=== PATIENT | male | born 1945 | race Two or more races ===

== ENCOUNTER 2022-07-06 21:13 | Inpatient (IN) | payer MEDICARE, OTHER ==
[~2022-07-06] VITALS: Ht 172.7 cm; Wt 48.0 kg
[2022-07-06] MEDS ORDERED: SITA1TAB6 PO (21:42)
[2022-07-06] MEDS ORDERED: INSLAN SQ (21:42)
[2022-07-06] MEDS ORDERED: MAGN-169 PO (21:42)
[2022-07-06] MEDS ORDERED: MEMA10TA11 PO (21:42)
[2022-07-06] MEDS ORDERED: PANT40GR PO (21:42)
[2022-07-06] MEDS ORDERED: CHOL200059 PO (21:42)
[2022-07-06] MEDS ORDERED: ROSU20TA73 PO (21:42)
[2022-07-06] MEDS ORDERED: MULT-1203 PO (21:42)
[2022-07-06] MEDS ORDERED: INSU100V SQ (21:42)
[2022-07-06] MEDS ORDERED: GLUC1KIT IM (21:42)
[2022-07-06] MEDS ORDERED: LOSA-382 PO (21:42)
[2022-07-06] MEDS ORDERED: PIPERACILLIN/TAZO 3.375 GM/D5W 50 ML IV ONE (21:45)
[2022-07-06] MEDS ORDERED: SODIUM CHLORIDE 0.9% 1,500 ML IV ONE (21:45)
[2022-07-06] MEDS ORDERED: VANCOMYCIN 1GM/WATER(PEG/NADA) 200 ML IV ONE (21:45)
[2022-07-06 21:46] LABS: COVID AG,FIA SOURCE NASOPHARYNGEAL
[2022-07-06] MEDS ORDERED: ACETAMINOPHEN 650 MG RECTAL SUPPOSITORY PR ONE ×2 (21:50→22:00)
[2022-07-06 21:53] LABS: BASOPHILS % (AUTO) 0.2 % (0.0-2.0); EOSINOPHILS % (AUTO) 0 % (1.0-6.0); HEMATOCRIT 40.6 % (41-53); HEMOGLOBIN 13.1 g/dL (13.5-17.5); LYMPHOCYTES # (AUTO) 0.8 K/uL (1.0-4.8); LYMPHOCYTES % (AUTO) 3.2 % (22.0-44.0); MEAN CORPUSCULAR HEMOGLOBIN 27.9 pg (26.0-34.0); MEAN CORPUSCULAR HGB CONC 32.4 G/dL (31.0-37.0); MEAN CORPUSCULAR VOLUME 86 fL (80-100); MONOCYTES # (AUTO) 1.8 K/uL (0.1-1.0); MONOCYTES % (AUTO) 7.4 % (2.0-9.0); PLATELET COUNT (AUTO) 228 K/uL (150-450); RED BLOOD CELL COUNT(AUTO) 4.71 MIL/uL (4.50-5.90); RED CELL DISTRIBUTION WIDTH 15.4 % (11.5-14.5)
[2022-07-06 21:54] LABS: APPEARANCE,URINE HAZY (CLEAR); BILIRUBIN,URINE NEGATIVE (NEGATIVE); GLUCOSE, URINE (UA) 150-200 mg/dL (NEGATIVE); LEUKOCYTE ESTERASE ,URINE NEGATIVE (NEGATIVE); NITRATE,URINE NEGATIVE (NEGATIVE); OCCULT BLOOD,URINE LARGE (NEGATIVE); PROTEIN,URINE 300-600,SEE CONFIRM mg/dL (NEGATIVE); SPECIFIC GRAVITIY, URINE 1.018 (1.003-1.030)
[2022-07-06 21:57] LABS: NEUTROPHILS % (AUTO) 89.2 % (40.0-70.0)
[2022-07-06 22:05] LABS: ALANINE AMINOTRANSFERASE 44 U/L (12-78); ALBUMIN 2.2 g/dL (3.4-5.0); ALKALINE PHOSPHATASE 338 U/L (46-116); ANION GAP 18 mmol/L (8-16); ASPARTATE AMINOTRANSFERASE 42 U/L (15-37); CALCIUM, TOTAL 8.9 mg/dL (8.8-10.5); CARBON DIOXIDE 18 mmol/L (22-29); CHLORIDE 107 mmol/L (98-107); CREATININE 2.33 mg/dL (0.60-1.30); GLOMERULAR FILTR. RATE CALC 27 mL/min (>60); POTASSIUM 3.9 mmol/L (3.5-5.1); SODIUM SERUM 143 mmol/L (136-145); TOTAL PROTEIN, SERUM 7.5 g/dL (6.4-8.2); UREA NITROGEN, BLOOD 38 mg/dL (7-18)
[2022-07-06 22:06] LABS: GLUCOSE,RANDOM 424 mg/dL (70-110)
[2022-07-06 22:08] LABS: SULFOSALICYLIC ACID,URINE 4+ (Negative)
[2022-07-06 22:10] LABS: SQUAMOUS EPITHELIAL CELL,UR Few /LPF (None Seen)
[2022-07-06 22:13] LABS: COARSE GRANULAR CASTS,URINE 0-2 /LPF (None Seen)
[2022-07-06 22:16] LABS: RBC,URINE 0-2 /HPF (0-2)
[2022-07-06 22:17] LABS: BACTERIA,URINE None Seen /HPF (None Seen)
[2022-07-06 22:19] LABS: INFLUENZA TYPE A NEGATIVE FOR TYPE A (NEGATIVE); INFLUENZA TYPE B NEGATIVE FOR TYPE B (NEGATIVE)
[2022-07-06 22:34] LABS: LACTIC ACID 3.9 mmol/L (0.4-2.0)
[2022-07-06] MEDS ORDERED: ONDANSETRON HCL 4 MG/2 ML VIAL IVP PRN (23:15)
[2022-07-06] MEDS ORDERED: INSULIN GLARGINE,HUM.REC.ANLOG 100 UNITS/ML SQ SCH (23:30)
[2022-07-06] MEDS ORDERED: DEXTROSE 50%-WATER 25 GM/50 ML SYRINGE IVP PRN (23:30)
[2022-07-06] MEDS: RINGERS SOLUTION,LACTATED 1,000 ML IV SCH (23:45)
[2022-07-07] MEDS: HEPARIN SODIUM,PORCINE 5,000 UNITS/ML VIAL SQ SCH ×4 (00:27→23:21)
[2022-07-07 02:57] VITALS: BP 155/70
[2022-07-07 03:15] LABS: CREATININE,URINE RANDOM 130.3 mg/dL (30.0-125.0)
[2022-07-07 03:41] LABS: GLUCOMETER DEV NAME(LOC) 5S.1B; GLUCOSE,POINT OF CARE 349 MG/DL (70-110)
[2022-07-07] MEDS: PIPERACILLIN SODIUM/TAZOBACTAM 2.25 GM in DEXTROSE 5%-WATER 50 ML IV SCH ×4 (04:08→23:21)
[2022-07-07 05:32] VITALS: BP 150/76
[2022-07-07] MEDS ORDERED: INSULIN GLARGINE,HUM.REC.ANLOG 100 UNITS/ML SQ SCH (06:00)
[2022-07-07 06:07] LABS: GLUCOMETER DEV NAME(LOC) 5S.1B; GLUCOSE,POINT OF CARE 357 MG/DL (70-110)
[2022-07-07] MEDS: INSULIN LISPRO 100 UNITS/ML SQ PRN ×3 (06:32→17:38)
[2022-07-07 07:30] VITALS: BP 143/74
[2022-07-07] MEDS: RINGERS SOLUTION,LACTATED 1,000 ML IV SCH (08:31)
[2022-07-07 08:32] LABS: BASOPHILS % (AUTO) 0.1 % (0.0-2.0); EOSINOPHILS % (AUTO) 0 % (1.0-6.0); HEMATOCRIT 37.6 % (41-53); HEMOGLOBIN 11.9 g/dL (13.5-17.5); LYMPHOCYTES # (AUTO) 1.5 K/uL (1.0-4.8); LYMPHOCYTES % (AUTO) 5.6 % (22.0-44.0); MEAN CORPUSCULAR HEMOGLOBIN 27.5 pg (26.0-34.0); MEAN CORPUSCULAR HGB CONC 31.7 G/dL (31.0-37.0); MEAN CORPUSCULAR VOLUME 87 fL (80-100); MONOCYTES % (AUTO) 3.8 % (2.0-9.0); NEUTROPHILS # (AUTO) 24.9 K/uL (1.8-7.7); PLATELET COUNT (AUTO) 179 K/uL (150-450); RED BLOOD CELL COUNT(AUTO) 4.35 MIL/uL (4.50-5.90); RED CELL DISTRIBUTION WIDTH 15.9 % (11.5-14.5)
[2022-07-07 08:42] LABS: CALCIUM, TOTAL 8.5 mg/dL (8.8-10.5); CREATININE 2.03 mg/dL (0.60-1.30); MAGNESIUM 2.3 mg/dL (1.80-2.40); POTASSIUM 3.3 mmol/L (3.5-5.1)
[2022-07-07 08:44] LABS: NEUTROPHILS % (AUTO) 90.5 % (40.0-70.0)
[2022-07-07 11:00] VITALS: BP 135/63
[2022-07-07] MEDS ORDERED: DEXTROSE 5%-WATER 1,000 ML IV ONE (11:45)
[2022-07-07 13:10] LABS: GLUCOMETER DEV NAME(LOC) 5S.1B; GLUCOSE,POINT OF CARE 302 MG/DL (70-110)
[2022-07-07 15:00] VITALS: BP 159/80
[2022-07-07 16:03] LABS: C-REACTIVE PROTEIN QUANT 18.3 mg/dL (0.00-0.30)
[2022-07-07 19:11] LABS: GLUCOMETER DEV NAME(LOC) 5S.1B; GLUCOSE,POINT OF CARE 307 MG/DL (70-110)
[2022-07-07 20:25] VITALS: BP 157/79
[2022-07-07 20:56] LABS: GLUCOMETER DEV NAME(LOC) 5S.2B; GLUCOSE,POINT OF CARE 257 MG/DL (70-110)
[2022-07-07] MEDS ORDERED: MELATONIN 3 MG TABLET PO ONE (21:00)
[2022-07-07] MEDS: INSULIN GLARGINE,HUM.REC.ANLOG 100 UNITS/ML SQ SCH (21:04)
[2022-07-07] MEDS: DOXYCYCLINE HYCLATE 100 MG TABLET PO SCH (21:19)
[2022-07-07] MEDS: MEMANTINE HCL 10 MG TABLET PO SCH (21:19)
[2022-07-07] MEDS: ROSUVASTATIN CALCIUM 20 MG TABLET PO SCH (21:19)
[2022-07-08 01:05] VITALS: BP 146/87
[2022-07-08] MEDS: PIPERACILLIN SODIUM/TAZOBACTAM 2.25 GM in DEXTROSE 5%-WATER 50 ML IV SCH ×4 (04:56→22:00)
[2022-07-08 05:21] VITALS: BP 146/71
[2022-07-08] MEDS: INSULIN LISPRO 100 UNITS/ML SQ PRN (06:45)
[2022-07-08 06:48] LABS: BASOPHILS % (AUTO) 0.2 % (0.0-2.0); EOSINOPHILS % (AUTO) 0.5 % (1.0-6.0); HEMATOCRIT 37.9 % (41-53); HEMOGLOBIN 12.1 g/dL (13.5-17.5); LYMPHOCYTES # (AUTO) 1.1 K/uL (1.0-4.8); LYMPHOCYTES % (AUTO) 5.3 % (22.0-44.0); MEAN CORPUSCULAR HEMOGLOBIN 27.8 pg (26.0-34.0); MEAN CORPUSCULAR HGB CONC 31.9 G/dL (31.0-37.0); MEAN CORPUSCULAR VOLUME 87 fL (80-100); MONOCYTES # (AUTO) 0.7 K/uL (0.1-1.0); MONOCYTES % (AUTO) 3.2 % (2.0-9.0); NEUTROPHILS # (AUTO) 19.7 K/uL (1.8-7.7); RED BLOOD CELL COUNT(AUTO) 4.35 MIL/uL (4.50-5.90); RED CELL DISTRIBUTION WIDTH 15.7 % (11.5-14.5)
[2022-07-08 06:49] LABS: NEUTROPHILS % (AUTO) 90.8 % (40.0-70.0)
[2022-07-08 06:52] LABS: GLUCOMETER DEV NAME(LOC) 5S.2B; GLUCOSE,POINT OF CARE 239 MG/DL (70-110)
[2022-07-08 07:09] LABS: ALBUMIN 1.9 g/dL (3.4-5.0); BILIRUBIN,TOTAL 0.5 mg/dL (0.1-1.0); C-REACTIVE PROTEIN QUANT 13.55 mg/dL (0.00-0.30); CALCIUM, TOTAL 8.3 mg/dL (8.8-10.5); CREATININE 1.35 mg/dL (0.60-1.30); TOTAL PROTEIN, SERUM 6.4 g/dL (6.4-8.2)
[2022-07-08 07:45] VITALS: BP 140/66
[2022-07-08] MEDS: HEPARIN SODIUM,PORCINE 5,000 UNITS/ML VIAL SQ SCH ×3 (08:00→23:44)
[2022-07-08 09:22] LABS: PLATELET COUNT (AUTO) 158 K/uL (150-450)
[2022-07-08] MEDS: MULTIVITAMINS, THERAPEUTIC TABLET PO SCH (09:32)
[2022-07-08] MEDS: DOXYCYCLINE HYCLATE 100 MG TABLET PO SCH ×2 (09:32→20:26)
[2022-07-08] MEDS: MEMANTINE HCL 10 MG TABLET PO SCH ×2 (09:32→20:26)
[2022-07-08] MEDS ORDERED: SODIUM CHLORIDE 0.9% 500 ML IV ONE (09:38)
[2022-07-08] MEDS ORDERED: POTASSIUM CHLORIDE 20 MEQ ER TABLET PO PRN (10:45)
[2022-07-08 11:35] VITALS: BP 139/80
[2022-07-08] MEDS: POTASSIUM CHL 10 MEQ/WATER 50 ML IV PRN (12:24)
[2022-07-08 15:45] VITALS: BP 155/75
[2022-07-08] MEDS ORDERED: MELATONIN 3 MG TABLET PO PRN (20:00)
[2022-07-08] MEDS: INSULIN GLARGINE,HUM.REC.ANLOG 100 UNITS/ML SQ SCH (20:26)
[2022-07-08] MEDS: ROSUVASTATIN CALCIUM 20 MG TABLET PO SCH (20:26)
[2022-07-08 20:41] LABS: GLUCOMETER DEV NAME(LOC) 5S.2B; GLUCOSE,POINT OF CARE 165 MG/DL (70-110)
[2022-07-08 20:41] LABS: GLUCOMETER DEV NAME(LOC) 5S.2B; GLUCOSE,POINT OF CARE 226 MG/DL (70-110)
[2022-07-08 21:10] VITALS: BP 147/79
[2022-07-09 00:40] VITALS: BP 144/82
[2022-07-09] MEDS: POTASSIUM CHL 10 MEQ/WATER 50 ML IV PRN ×4 (04:05→12:34)
[2022-07-09] MEDS: PIPERACILLIN SODIUM/TAZOBACTAM 2.25 GM in DEXTROSE 5%-WATER 50 ML IV SCH ×4 (04:06→21:53)
[2022-07-09 05:42] VITALS: BP 131/64
[2022-07-09 06:24] LABS: BASOPHILS % (AUTO) 0.1 % (0.0-2.0); EOSINOPHILS % (AUTO) 0.4 % (1.0-6.0); HEMATOCRIT 35.7 % (41-53); HEMOGLOBIN 11.8 g/dL (13.5-17.5); LYMPHOCYTES # (AUTO) 1.6 K/uL (1.0-4.8); MEAN CORPUSCULAR HEMOGLOBIN 27.9 pg (26.0-34.0); MEAN CORPUSCULAR HGB CONC 33.1 G/dL (31.0-37.0); MEAN CORPUSCULAR VOLUME 84 fL (80-100); MONOCYTES # (AUTO) 0.7 K/uL (0.1-1.0); MONOCYTES % (AUTO) 3.8 % (2.0-9.0); NEUTROPHILS # (AUTO) 15.4 K/uL (1.8-7.7); PLATELET COUNT (AUTO) 170 K/uL (150-450); RED BLOOD CELL COUNT(AUTO) 4.24 MIL/uL (4.50-5.90); RED CELL DISTRIBUTION WIDTH 15.2 % (11.5-14.5)
[2022-07-09 06:27] LABS: NEUTROPHILS % (AUTO) 86.7 % (40.0-70.0)
[2022-07-09 06:37] LABS: C-REACTIVE PROTEIN QUANT 10.96 mg/dL (0.00-0.30); CALCIUM, TOTAL 8.7 mg/dL (8.8-10.5); CARBON DIOXIDE 24 mmol/L (22-29); CHLORIDE 105 mmol/L (98-107); CREATININE 1.08 mg/dL (0.60-1.30); GLUCOSE,RANDOM 159 mg/dL (70-110); POTASSIUM 3.3 mmol/L (3.5-5.1); UREA NITROGEN, BLOOD 18 mg/dL (7-18)
[2022-07-09 06:58] LABS: GLOMERULAR FILTR. RATE CALC > 60 mL/min (>60)
[2022-07-09] MEDS: INSULIN LISPRO 100 UNITS/ML SQ PRN ×3 (07:02→21:49)
[2022-07-09 07:16] LABS: GLUCOMETER DEV NAME(LOC) 5S.1B; GLUCOSE,POINT OF CARE 162 MG/DL (70-110)
[2022-07-09 07:18] LABS: ANION GAP 15 mmol/L (8-16); SODIUM SERUM 144 mmol/L (136-145)
[2022-07-09 07:26] VITALS: BP 104/61
[2022-07-09] MEDS: HEPARIN SODIUM,PORCINE 5,000 UNITS/ML VIAL SQ SCH ×2 (08:16→16:13)
[2022-07-09] MEDS: MULTIVITAMINS, THERAPEUTIC TABLET PO SCH (08:16)
[2022-07-09] MEDS: MEMANTINE HCL 10 MG TABLET PO SCH ×3 (08:16→21:48)
[2022-07-09] MEDS: DOXYCYCLINE HYCLATE 100 MG TABLET PO SCH ×3 (08:16→21:49)
[2022-07-09 11:24] VITALS: BP 129/62
[2022-07-09 15:09] VITALS: BP 19/53
[2022-07-09 20:14] VITALS: BP 155/84
[2022-07-09 20:26] LABS: GLUCOMETER DEV NAME(LOC) 5N.1C; GLUCOSE,POINT OF CARE 157 MG/DL (70-110)
[2022-07-09 20:26] LABS: GLUCOMETER DEV NAME(LOC) 5S.1B; GLUCOSE,POINT OF CARE 315 MG/DL (70-110)
[2022-07-09] MEDS: INSULIN GLARGINE,HUM.REC.ANLOG 100 UNITS/ML SQ SCH (21:00)
[2022-07-09] MEDS: ROSUVASTATIN CALCIUM 20 MG TABLET PO SCH ×2 (21:00→21:48)
[2022-07-09 23:46] LABS: GLUCOMETER DEV NAME(LOC) 5N.1C; GLUCOSE,POINT OF CARE 217 MG/DL (70-110)
[2022-07-10] MEDS: HEPARIN SODIUM,PORCINE 5,000 UNITS/ML VIAL SQ SCH ×5 (00:11→23:25)
[2022-07-10 04:00] VITALS: BP 162/79
[2022-07-10] MEDS: PIPERACILLIN SODIUM/TAZOBACTAM 2.25 GM in DEXTROSE 5%-WATER 50 ML IV SCH ×4 (04:37→23:16)
[2022-07-10] MEDS: INSULIN LISPRO 100 UNITS/ML SQ PRN ×4 (06:37→20:40)
[2022-07-10 07:07] VITALS: BP 134/71
[2022-07-10 07:24] LABS: BASOPHILS % (AUTO) 0.1 % (0.0-2.0); EOSINOPHILS % (AUTO) 0.4 % (1.0-6.0); HEMOGLOBIN 11.6 g/dL (13.5-17.5); LYMPHOCYTES # (AUTO) 1.3 K/uL (1.0-4.8); LYMPHOCYTES % (AUTO) 7.9 % (22.0-44.0); MEAN CORPUSCULAR HEMOGLOBIN 27.8 pg (26.0-34.0); MEAN CORPUSCULAR VOLUME 84 fL (80-100); MONOCYTES # (AUTO) 0.6 K/uL (0.1-1.0); NEUTROPHILS # (AUTO) 14.2 K/uL (1.8-7.7); PLATELET COUNT (AUTO) 171 K/uL (150-450); RED BLOOD CELL COUNT(AUTO) 4.16 MIL/uL (4.50-5.90); RED CELL DISTRIBUTION WIDTH 15.1 % (11.5-14.5)
[2022-07-10 07:32] LABS: NEUTROPHILS % (AUTO) 87.6 % (40.0-70.0)
[2022-07-10 07:34] LABS: C-REACTIVE PROTEIN QUANT 8.49 mg/dL (0.00-0.30); CALCIUM, TOTAL 8.6 mg/dL (8.8-10.5); CARBON DIOXIDE 25 mmol/L (22-29); CHLORIDE 104 mmol/L (98-107); CREATININE 1.03 mg/dL (0.60-1.30); GLUCOSE,RANDOM 231 mg/dL (70-110); POTASSIUM 3.4 mmol/L (3.5-5.1); UREA NITROGEN, BLOOD 16 mg/dL (7-18)
[2022-07-10 07:41] LABS: ANION GAP 10 mmol/L (8-16); SODIUM SERUM 139 mmol/L (136-145)
[2022-07-10 07:42] LABS: GLOMERULAR FILTR. RATE CALC > 60 mL/min (>60)
[2022-07-10 09:06] LABS: GLUCOMETER DEV NAME(LOC) 5N.1C; GLUCOSE,POINT OF CARE 229 MG/DL (70-110)
[2022-07-10] MEDS: MULTIVITAMINS, THERAPEUTIC TABLET PO SCH (09:17)
[2022-07-10] MEDS: DOXYCYCLINE HYCLATE 100 MG TABLET PO SCH ×2 (09:17→20:36)
[2022-07-10] MEDS: MEMANTINE HCL 10 MG TABLET PO SCH ×2 (09:17→20:37)
[2022-07-10 11:06] VITALS: BP 100/81
[2022-07-10 12:46] LABS: GLUCOMETER DEV NAME(LOC) 5S.1B; GLUCOSE,POINT OF CARE 302 MG/DL (70-110)
[2022-07-10 15:04] VITALS: BP 154/87
[2022-07-10 18:16] LABS: GLUCOMETER DEV NAME(LOC) 5N.1C; GLUCOSE,POINT OF CARE 294 MG/DL (70-110)
[2022-07-10 19:30] VITALS: BP 137/85
[2022-07-10] MEDS: ROSUVASTATIN CALCIUM 20 MG TABLET PO SCH (20:36)
[2022-07-10] MEDS: INSULIN GLARGINE,HUM.REC.ANLOG 100 UNITS/ML SQ SCH (20:39)
[2022-07-10 22:57] LABS: GLUCOMETER DEV NAME(LOC) 5N.1C; GLUCOSE,POINT OF CARE 291 MG/DL (70-110)
[2022-07-10] MEDS ORDERED: SODIUM CHLORIDE 0.9% 250 ML IV ONE (23:18)
[2022-07-11 00:45] VITALS: BP 163/98
[2022-07-11] MEDS: LABETALOL HCL 100 MG TABLET PO SCH ×3 (00:45→21:33)
[2022-07-11] MEDS: HydrALAZINE HCL 20 MG/ML VIAL IVP PRN (01:25)
[2022-07-11 04:11] VITALS: BP 145/79
[2022-07-11] MEDS: PIPERACILLIN SODIUM/TAZOBACTAM 2.25 GM in DEXTROSE 5%-WATER 50 ML IV SCH ×4 (05:01→21:43)
[2022-07-11 06:19] LABS: BASOPHILS % (AUTO) 0.1 % (0.0-2.0); EOSINOPHILS % (AUTO) 0.6 % (1.0-6.0); HEMATOCRIT 38.1 % (41-53); HEMOGLOBIN 12.4 g/dL (13.5-17.5); LYMPHOCYTES # (AUTO) 1.5 K/uL (1.0-4.8); LYMPHOCYTES % (AUTO) 7.7 % (22.0-44.0); MEAN CORPUSCULAR HGB CONC 32.6 G/dL (31.0-37.0); MEAN CORPUSCULAR VOLUME 86 fL (80-100); MONOCYTES # (AUTO) 1.1 K/uL (0.1-1.0); MONOCYTES % (AUTO) 6.1 % (2.0-9.0); NEUTROPHILS # (AUTO) 16.3 K/uL (1.8-7.7); PLATELET COUNT (AUTO) 177 K/uL (150-450); RED BLOOD CELL COUNT(AUTO) 4.43 MIL/uL (4.50-5.90); RED CELL DISTRIBUTION WIDTH 15.4 % (11.5-14.5)
[2022-07-11 06:46] LABS: GLUCOMETER DEV NAME(LOC) 5N.1C; GLUCOSE,POINT OF CARE 210 MG/DL (70-110)
[2022-07-11 06:59] LABS: NEUTROPHILS % (AUTO) 85.5 % (40.0-70.0)
[2022-07-11] MEDS: INSULIN LISPRO 100 UNITS/ML SQ PRN ×5 (07:05→22:36)
[2022-07-11 07:48] VITALS: BP 115/58
[2022-07-11] MEDS: HEPARIN SODIUM,PORCINE 5,000 UNITS/ML VIAL SQ SCH ×3 (08:00→23:27)
[2022-07-11] MEDS: MEMANTINE HCL 10 MG TABLET PO SCH ×2 (09:00→21:33)
[2022-07-11] MEDS: MULTIVITAMINS, THERAPEUTIC TABLET PO SCH (09:00)
[2022-07-11] MEDS: DOXYCYCLINE HYCLATE 100 MG TABLET PO SCH ×2 (09:00→21:33)
[2022-07-11 11:18] VITALS: BP 107/60
[2022-07-11 15:06] LABS: LEGIONELLA PNEUMO AG URINE Negative (Negative)
[2022-07-11 16:06] LABS: S PNEUMO SOURCE Urine; STREP PNEUMONIAE AG URINE Positive (Negative)
[2022-07-11 16:21] VITALS: BP 129/70
[2022-07-11 19:56] VITALS: BP 110/75
[2022-07-11] MEDS: INSULIN GLARGINE,HUM.REC.ANLOG 100 UNITS/ML SQ SCH ×2 (21:00→21:34)
[2022-07-11] MEDS: ROSUVASTATIN CALCIUM 20 MG TABLET PO SCH (21:33)
[2022-07-12 00:06] LABS: ALKALINE PHOSPHATASE - OTHER 3 % (0-18)
[2022-07-12 00:12] VITALS: BP 134/72
[2022-07-12] MEDS ORDERED: SODIUM CHLORIDE 3% 15 ML NEB SOLUTION NEB ONE (00:24)
[2022-07-12] MEDS ORDERED: 0.9% SODIUM CHLORIDE 5 ML NEB SOLUTION NEB ONE (00:24)
[2022-07-12] MEDS: PIPERACILLIN SODIUM/TAZOBACTAM 2.25 GM in DEXTROSE 5%-WATER 50 ML IV SCH ×4 (04:01→22:28)
[2022-07-12] MEDS: INSULIN LISPRO 100 UNITS/ML SQ PRN ×4 (06:49→22:29)
[2022-07-12 06:57] LABS: GLUCOMETER DEV NAME(LOC) 5S.1B; GLUCOSE,POINT OF CARE 277 MG/DL (70-110)
[2022-07-12 07:02] LABS: GLUCOMETER DEV NAME(LOC) 5N.1C; GLUCOSE,POINT OF CARE 369 MG/DL (70-110)
[2022-07-12 07:02] LABS: GLUCOMETER DEV NAME(LOC) 5N.1C; GLUCOSE,POINT OF CARE 218 MG/DL (70-110)
[2022-07-12 07:02] LABS: GLUCOMETER DEV NAME(LOC) 5N.1C; GLUCOSE,POINT OF CARE 188 MG/DL (70-110)
[2022-07-12] MEDS: HEPARIN SODIUM,PORCINE 5,000 UNITS/ML VIAL SQ SCH ×4 (08:00→22:28)
[2022-07-12] MEDS: MEMANTINE HCL 10 MG TABLET PO SCH ×3 (09:00→22:28)
[2022-07-12] MEDS: DOXYCYCLINE HYCLATE 100 MG TABLET PO SCH ×2 (09:00→09:18)
[2022-07-12] MEDS: LABETALOL HCL 100 MG TABLET PO SCH ×3 (09:00→22:28)
[2022-07-12 09:16] VITALS: BP 128/70
[2022-07-12] MEDS: MULTIVITAMINS, THERAPEUTIC TABLET PO SCH (09:18)
[2022-07-12] MEDS ORDERED: SODIUM CHLORIDE 0.9% 250 ML IV ONE (09:23)
[2022-07-12 10:21] LABS: BASOPHILS % (AUTO) 0.1 % (0.0-2.0); EOSINOPHILS % (AUTO) 1.1 % (1.0-6.0); HEMATOCRIT 36.4 % (41-53); HEMOGLOBIN 11.7 g/dL (13.5-17.5); LYMPHOCYTES # (AUTO) 1.6 K/uL (1.0-4.8); LYMPHOCYTES % (AUTO) 7.8 % (22.0-44.0); MEAN CORPUSCULAR HEMOGLOBIN 28.1 pg (26.0-34.0); MEAN CORPUSCULAR HGB CONC 32.2 G/dL (31.0-37.0); MEAN CORPUSCULAR VOLUME 88 fL (80-100); MONOCYTES # (AUTO) 1.3 K/uL (0.1-1.0); MONOCYTES % (AUTO) 6.3 % (2.0-9.0); NEUTROPHILS # (AUTO) 16.8 K/uL (1.8-7.7); NEUTROPHILS % (AUTO) 84.7 % (40.0-70.0); PLATELET COUNT (AUTO) 200 K/uL (150-450); RED BLOOD CELL COUNT(AUTO) 4.16 MIL/uL (4.50-5.90); RED CELL DISTRIBUTION WIDTH 15.4 % (11.5-14.5)
[2022-07-12 10:40] LABS: CALCIUM, TOTAL 9.2 mg/dL (8.8-10.5); CREATININE 1.22 mg/dL (0.60-1.30)
[2022-07-12 11:46] LABS: GLUCOMETER DEV NAME(LOC) 5S.1B; GLUCOSE,POINT OF CARE 354 MG/DL (70-110)
[2022-07-12 11:49] VITALS: BP 126/72
[2022-07-12 16:00] VITALS: BP 126/74
[2022-07-12 19:41] VITALS: BP 127/70
[2022-07-12 19:41] LABS: GLUCOMETER DEV NAME(LOC) 5N.3; GLUCOSE,POINT OF CARE 341 MG/DL (70-110)
[2022-07-12 22:22] LABS: GLUCOMETER DEV NAME(LOC) 5N.1C; GLUCOSE,POINT OF CARE 260 MG/DL (70-110)
[2022-07-12] MEDS: ROSUVASTATIN CALCIUM 20 MG TABLET PO SCH (22:28)
[2022-07-12] MEDS: INSULIN GLARGINE,HUM.REC.ANLOG 100 UNITS/ML SQ SCH (22:29)
[2022-07-13 04:00] VITALS: BP 142/76
[2022-07-13] MEDS: PIPERACILLIN SODIUM/TAZOBACTAM 2.25 GM in DEXTROSE 5%-WATER 50 ML IV SCH ×2 (04:15→09:38)
[2022-07-13] MEDS: INSULIN LISPRO 100 UNITS/ML SQ PRN (06:36)
[2022-07-13 06:41] LABS: GLUCOMETER DEV NAME(LOC) 5S.1B; GLUCOSE,POINT OF CARE 188 MG/DL (70-110)
[2022-07-13 07:06] LABS: HIV 1-2 SCREEN 4TH GEN W/RFLX Non Reactive (Non Reactive)
[2022-07-13 07:13] LABS: BASOPHILS % (AUTO) 0.1 % (0.0-2.0); EOSINOPHILS % (AUTO) 1.3 % (1.0-6.0); HEMATOCRIT 35.3 % (41-53); HEMOGLOBIN 11.5 g/dL (13.5-17.5); LYMPHOCYTES # (AUTO) 1.8 K/uL (1.0-4.8); LYMPHOCYTES % (AUTO) 8.6 % (22.0-44.0); MEAN CORPUSCULAR HEMOGLOBIN 28.1 pg (26.0-34.0); MEAN CORPUSCULAR HGB CONC 32.6 G/dL (31.0-37.0); MEAN CORPUSCULAR VOLUME 86 fL (80-100); MONOCYTES # (AUTO) 1.3 K/uL (0.1-1.0); MONOCYTES % (AUTO) 6.3 % (2.0-9.0); NEUTROPHILS # (AUTO) 17.1 K/uL (1.8-7.7); NEUTROPHILS % (AUTO) 83.7 % (40.0-70.0); PLATELET COUNT (AUTO) 223 K/uL (150-450); RED CELL DISTRIBUTION WIDTH 15.1 % (11.5-14.5)
[2022-07-13 07:23] LABS: ANION GAP 8 mmol/L (8-16); C-REACTIVE PROTEIN QUANT 8.83 mg/dL (0.00-0.30); CALCIUM, TOTAL 8.8 mg/dL (8.8-10.5); CARBON DIOXIDE 25 mmol/L (22-29); CHLORIDE 102 mmol/L (98-107); CREATININE 0.99 mg/dL (0.60-1.30); GLUCOSE,RANDOM 213 mg/dL (70-110); POTASSIUM 3.8 mmol/L (3.5-5.1); SODIUM SERUM 135 mmol/L (136-145); UREA NITROGEN, BLOOD 16 mg/dL (7-18)
[2022-07-13 07:28] LABS: GLOMERULAR FILTR. RATE CALC > 60 mL/min (>60)
[2022-07-13 07:44] LABS: FREE T4 (FREE THYROXINE) 1.36 ng/dL (0.76-1.46)
[2022-07-13] MEDS: HEPARIN SODIUM,PORCINE 5,000 UNITS/ML VIAL SQ SCH ×2 (08:00→16:00)
[2022-07-13] MEDS: LABETALOL HCL 100 MG TABLET PO SCH ×2 (09:38→21:12)
[2022-07-13] MEDS: MULTIVITAMINS, THERAPEUTIC TABLET PO SCH (09:38)
[2022-07-13] MEDS: MEMANTINE HCL 10 MG TABLET PO SCH ×2 (09:38→21:12)
[2022-07-13] MEDS ORDERED: PIPERACILLIN SODIUM/TAZOBACTAM 2.25 GM in DEXTROSE 5%-WATER 50 ML IV SCH (16:00)
[2022-07-13] MEDS: PIPERACILLIN/TAZO 3.375 GM/D5W 50 ML IV SCH ×2 (17:33→21:12)
[2022-07-13 19:30] VITALS: BP 149/78
[2022-07-13] MEDS: INSULIN GLARGINE,HUM.REC.ANLOG 100 UNITS/ML SQ SCH (21:11)
[2022-07-13] MEDS: ROSUVASTATIN CALCIUM 20 MG TABLET PO SCH (21:12)
[2022-07-13 23:27] LABS: GLUCOMETER DEV NAME(LOC) 5S.1B; GLUCOSE,POINT OF CARE 226 MG/DL (70-110)
[2022-07-13 23:55] VITALS: BP 139/77
[2022-07-14 04:00] VITALS: BP 145/85
[2022-07-14] MEDS: PIPERACILLIN/TAZO 3.375 GM/D5W 50 ML IV SCH ×4 (04:12→21:05)
[2022-07-14] MEDS: HEPARIN SODIUM,PORCINE 5,000 UNITS/ML VIAL SQ SCH ×3 (08:49→16:00)
[2022-07-14] MEDS: LABETALOL HCL 100 MG TABLET PO SCH ×2 (08:50→21:00)
[2022-07-14] MEDS: MULTIVITAMINS, THERAPEUTIC TABLET PO SCH (08:50)
[2022-07-14] MEDS: MEMANTINE HCL 10 MG TABLET PO SCH ×2 (08:50→21:00)
[2022-07-14] MEDS ORDERED: SODIUM CHLORIDE 0.9% 250 ML IV ONE (09:01)
[2022-07-14 12:12] VITALS: BP 151/60
[2022-07-14 13:47] LABS: GLUCOMETER DEV NAME(LOC) 5S.1B; GLUCOSE,POINT OF CARE 187 MG/DL (70-110)
[2022-07-14 17:24] VITALS: BP 130/69
[2022-07-14 19:51] VITALS: BP 129/70
[2022-07-14] MEDS: INSULIN GLARGINE,HUM.REC.ANLOG 100 UNITS/ML SQ SCH (21:00)
[2022-07-14] MEDS: ROSUVASTATIN CALCIUM 20 MG TABLET PO SCH (21:00)
[2022-07-15] VITALS: BP 131/77
[2022-07-15] MEDS: PIPERACILLIN/TAZO 3.375 GM/D5W 50 ML IV SCH ×4 (04:21→23:07)
[2022-07-15 04:30] VITALS: BP 146/90
[2022-07-15 08:30] VITALS: BP 162/90
[2022-07-15] MEDS: MEMANTINE HCL 10 MG TABLET PO SCH ×2 (09:09→21:00)
[2022-07-15] MEDS: HEPARIN SODIUM,PORCINE 5,000 UNITS/ML VIAL SQ SCH ×4 (09:10→23:17)
[2022-07-15] MEDS: LABETALOL HCL 100 MG TABLET PO SCH ×2 (09:10→21:00)
[2022-07-15] MEDS: MULTIVITAMINS, THERAPEUTIC TABLET PO SCH (09:10)
[2022-07-15 09:22] LABS: BASOPHILS % (AUTO) 0.2 % (0.0-2.0); EOSINOPHILS % (AUTO) 0.2 % (1.0-6.0); HEMATOCRIT 35.7 % (41-53); HEMOGLOBIN 11.5 g/dL (13.5-17.5); LYMPHOCYTES # (AUTO) 1.7 K/uL (1.0-4.8); LYMPHOCYTES % (AUTO) 5.5 % (22.0-44.0); MEAN CORPUSCULAR HEMOGLOBIN 27.8 pg (26.0-34.0); MEAN CORPUSCULAR HGB CONC 32.2 G/dL (31.0-37.0); MEAN CORPUSCULAR VOLUME 86 fL (80-100); MONOCYTES # (AUTO) 1.4 K/uL (0.1-1.0); MONOCYTES % (AUTO) 4.4 % (2.0-9.0); NEUTROPHILS # (AUTO) 28.3 K/uL (1.8-7.7); PLATELET COUNT (AUTO) 295 K/uL (150-450); RED BLOOD CELL COUNT(AUTO) 4.14 MIL/uL (4.50-5.90); RED CELL DISTRIBUTION WIDTH 15.5 % (11.5-14.5)
[2022-07-15 09:36] LABS: ALANINE AMINOTRANSFERASE 72 U/L (12-78); ALKALINE PHOSPHATASE 633 U/L (46-116); ANION GAP 6 mmol/L (8-16); ASPARTATE AMINOTRANSFERASE 48 U/L (15-37); BILIRUBIN,TOTAL 0.7 mg/dL (0.1-1.0); CARBON DIOXIDE 28 mmol/L (22-29); CHLORIDE 100 mmol/L (98-107); GLOMERULAR FILTR. RATE CALC > 60 mL/min (>60); GLUCOSE,RANDOM 257 mg/dL (70-110); POTASSIUM 4.5 mmol/L (3.5-5.1); SODIUM SERUM 134 mmol/L (136-145); TOTAL PROTEIN, SERUM 7.5 g/dL (6.4-8.2); UREA NITROGEN, BLOOD 17 mg/dL (7-18)
[2022-07-15 09:43] LABS: C-REACTIVE PROTEIN QUANT 10.67 mg/dL (0.00-0.30)
[2022-07-15 09:46] LABS: NEUTROPHILS % (AUTO) 89.7 % (40.0-70.0)
[2022-07-15 11:46] VITALS: BP 107/73
[2022-07-15] MEDS: INSULIN LISPRO 100 UNITS/ML SQ PRN (17:38)
[2022-07-15 18:06] LABS: GLUCOMETER DEV NAME(LOC) 5S.1B; GLUCOSE,POINT OF CARE 275 MG/DL (70-110)
[2022-07-15 20:20] VITALS: BP 141/78
[2022-07-15] MEDS ORDERED: IOHEXOL 350 MG/ML 100 ML VIAL ONE (20:28)
[2022-07-15] MEDS ORDERED: SODIUM CHLORIDE 0.9% 100 ML ONE (20:28)
[2022-07-15] MEDS: ROSUVASTATIN CALCIUM 20 MG TABLET PO SCH (21:00)
[2022-07-15] MEDS: INSULIN GLARGINE,HUM.REC.ANLOG 100 UNITS/ML SQ SCH (21:00)
[2022-07-15] MEDS ORDERED: SODIUM CHLORIDE 0.9% 250 ML IV ONE (23:08)
[2022-07-16 00:46] VITALS: BP 152/82
[2022-07-16 04:35] VITALS: BP 157/80
[2022-07-16] MEDS: PIPERACILLIN/TAZO 3.375 GM/D5W 50 ML IV SCH ×4 (04:40→21:02)
[2022-07-16 08:00] VITALS: BP 120/60
[2022-07-16] MEDS: MULTIVITAMINS, THERAPEUTIC TABLET PO SCH (08:17)
[2022-07-16] MEDS: HEPARIN SODIUM,PORCINE 5,000 UNITS/ML VIAL SQ SCH ×2 (08:17→16:00)
[2022-07-16] MEDS: LABETALOL HCL 100 MG TABLET PO SCH ×3 (08:17→21:00)
[2022-07-16] MEDS: MEMANTINE HCL 10 MG TABLET PO SCH ×3 (08:17→21:00)
[2022-07-16 08:40] LABS: HEMATOCRIT 33.9 % (41-53); HEMOGLOBIN 10.8 g/dL (13.5-17.5); MEAN CORPUSCULAR HEMOGLOBIN 27.9 pg (26.0-34.0); MEAN CORPUSCULAR HGB CONC 31.8 G/dL (31.0-37.0); MEAN CORPUSCULAR VOLUME 88 fL (80-100); PLATELET COUNT (AUTO) 272 K/uL (150-450); RED BLOOD CELL COUNT(AUTO) 3.86 MIL/uL (4.50-5.90); RED CELL DISTRIBUTION WIDTH 15.6 % (11.5-14.5)
[2022-07-16 09:00] LABS: BAND NEUTROPHILS % (MANUAL) 2 % (0-5); C-REACTIVE PROTEIN QUANT 14.48 mg/dL (0.00-0.30); LYMPHOCYTES % (MANUAL) 8 % (22-44); MONOCYTES % (MANUAL) 4 % (2-9); SEGMENTED NEUTROPHILS % 86 % (40-70)
[2022-07-16 09:12] LABS: ALANINE AMINOTRANSFERASE 58 U/L (12-78); ALKALINE PHOSPHATASE 552 U/L (46-116); ANION GAP 7 mmol/L (8-16); ASPARTATE AMINOTRANSFERASE 34 U/L (15-37); BILIRUBIN,TOTAL 0.5 mg/dL (0.1-1.0); CALCIUM, TOTAL 9.6 mg/dL (8.8-10.5); CARBON DIOXIDE 27 mmol/L (22-29); CHLORIDE 103 mmol/L (98-107); CREATININE 1.13 mg/dL (0.60-1.30); GLOMERULAR FILTR. RATE CALC > 60 mL/min (>60); GLUCOSE,RANDOM 242 mg/dL (70-110); POTASSIUM 5.1 mmol/L (3.5-5.1); SODIUM SERUM 137 mmol/L (136-145); TOTAL PROTEIN, SERUM 7.5 g/dL (6.4-8.2); UREA NITROGEN, BLOOD 17 mg/dL (7-18)
[2022-07-16 11:50] VITALS: BP 156/61
[2022-07-16 16:15] VITALS: BP 111/53
[2022-07-16 19:53] VITALS: BP 169/59
[2022-07-16] MEDS: ROSUVASTATIN CALCIUM 20 MG TABLET PO SCH ×2 (20:35→21:00)
[2022-07-16] MEDS: ACETAMINOPHEN 325 MG TABLET PO PRN (20:35)
[2022-07-16] MEDS: INSULIN GLARGINE,HUM.REC.ANLOG 100 UNITS/ML SQ SCH (21:00)
[2022-07-17 00:08] VITALS: BP 146/84
[2022-07-17] MEDS: HydrALAZINE HCL 20 MG/ML VIAL IVP PRN (00:17)
[2022-07-17] MEDS: PIPERACILLIN/TAZO 3.375 GM/D5W 50 ML IV SCH ×2 (04:35→09:34)
[2022-07-17 05:06] LABS: QUANTIFERON, TB GOLD PLUS Positive (Negative)
[2022-07-17 05:18] VITALS: BP 161/91
[2022-07-17] MEDS: MULTIVITAMINS, THERAPEUTIC TABLET PO SCH (08:51)
[2022-07-17] MEDS: LABETALOL HCL 100 MG TABLET PO SCH ×2 (08:51→21:00)
[2022-07-17] MEDS: MEMANTINE HCL 10 MG TABLET PO SCH ×2 (08:51→21:00)
[2022-07-17] MEDS: HEPARIN SODIUM,PORCINE 5,000 UNITS/ML VIAL SQ SCH ×3 (08:51→16:00)
[2022-07-17] MEDS: ACETAMINOPHEN 325 MG TABLET PO PRN (08:52)
[2022-07-17 09:20] VITALS: BP 162/52
[2022-07-17 15:31] VITALS: BP 123/75
[2022-07-17] MEDS: INSULIN GLARGINE,HUM.REC.ANLOG 100 UNITS/ML SQ SCH (21:00)
[2022-07-17] MEDS: ROSUVASTATIN CALCIUM 20 MG TABLET PO SCH (21:00)
[2022-07-18] MEDS: HEPARIN SODIUM,PORCINE 5,000 UNITS/ML VIAL SQ SCH ×3 (08:00→15:48)
[2022-07-18] MEDS: MULTIVITAMINS, THERAPEUTIC TABLET PO SCH (08:44)
[2022-07-18] MEDS: MEMANTINE HCL 10 MG TABLET PO SCH ×2 (08:44→21:26)
[2022-07-18 08:45] VITALS: BP 168/97
[2022-07-18] MEDS: LABETALOL HCL 100 MG TABLET PO SCH ×2 (08:45→21:26)
[2022-07-18 12:30] VITALS: BP 133/68
[2022-07-18 20:58] VITALS: BP 128/84
[2022-07-18] MEDS: INSULIN GLARGINE,HUM.REC.ANLOG 100 UNITS/ML SQ SCH (21:00)
[2022-07-18] MEDS: ROSUVASTATIN CALCIUM 20 MG TABLET PO SCH (21:26)
[2022-07-18] MEDS: ACETAMINOPHEN 325 MG TABLET PO PRN (21:27)
[2022-07-19 00:37] VITALS: BP 159/81
[2022-07-19 05:15] VITALS: BP 126/56
[2022-07-19] MEDS: HEPARIN SODIUM,PORCINE 5,000 UNITS/ML VIAL SQ SCH ×3 (08:00→15:51)
[2022-07-19] MEDS: MEMANTINE HCL 10 MG TABLET PO SCH ×3 (09:00→21:09)
[2022-07-19] MEDS: MULTIVITAMINS, THERAPEUTIC TABLET PO SCH ×2 (09:00→10:00)
[2022-07-19] MEDS: LABETALOL HCL 100 MG TABLET PO SCH ×2 (09:00→21:08)
[2022-07-19 09:51] VITALS: BP 110/63
[2022-07-19 12:39] VITALS: BP 143/73
[2022-07-19 18:29] VITALS: BP 154/63
[2022-07-19 20:39] VITALS: BP 158/65
[2022-07-19 20:51] LABS: GLUCOMETER DEV NAME(LOC) 5S.1B; GLUCOSE,POINT OF CARE 473 MG/DL (70-110)
[2022-07-19] MEDS: INSULIN GLARGINE,HUM.REC.ANLOG 100 UNITS/ML SQ SCH (21:00)
[2022-07-19] MEDS: INSULIN LISPRO 100 UNITS/ML SQ PRN (21:01)
[2022-07-19] MEDS: ROSUVASTATIN CALCIUM 20 MG TABLET PO SCH (21:08)
[2022-07-19] MEDS: ACETAMINOPHEN 325 MG TABLET PO PRN (21:08)
[2022-07-20 00:02] VITALS: BP 136/80
[2022-07-20] MEDS: HEPARIN SODIUM,PORCINE 5,000 UNITS/ML VIAL SQ SCH ×3 (00:26→17:56)
[2022-07-20 05:51] VITALS: BP 138/69
[2022-07-20 05:51] LABS: GLUCOMETER DEV NAME(LOC) 5S.2B; GLUCOSE,POINT OF CARE 295 MG/DL (70-110)
[2022-07-20] MEDS: INSULIN LISPRO 100 UNITS/ML SQ PRN ×5 (06:40→21:58)
[2022-07-20 09:10] VITALS: BP 142/72
[2022-07-20] MEDS: LABETALOL HCL 100 MG TABLET PO SCH ×2 (09:54→21:59)
[2022-07-20] MEDS: MEMANTINE HCL 10 MG TABLET PO SCH ×2 (09:54→21:59)
[2022-07-20] MEDS: MULTIVITAMINS, THERAPEUTIC TABLET PO SCH (09:54)
[2022-07-20 14:37] VITALS: BP 137/72
[2022-07-20 17:31] LABS: GLUCOMETER DEV NAME(LOC) 5S.2B; GLUCOSE,POINT OF CARE 358 MG/DL (70-110)
[2022-07-20 20:05] LABS: GLUCOMETER DEV NAME(LOC) 5S.1B; GLUCOSE,POINT OF CARE 311 MG/DL (70-110)
[2022-07-20 20:26] VITALS: BP 134/70
[2022-07-20] MEDS: INSULIN GLARGINE,HUM.REC.ANLOG 100 UNITS/ML SQ SCH (21:59)
[2022-07-20] MEDS: ROSUVASTATIN CALCIUM 20 MG TABLET PO SCH (21:59)
[2022-07-20] MEDS: ACETAMINOPHEN 325 MG TABLET PO PRN (21:59)
[2022-07-21 00:30] VITALS: BP 129/68
[2022-07-21 02:16] LABS: GLUCOMETER DEV NAME(LOC) 5N.1C; GLUCOSE,POINT OF CARE 284 MG/DL (70-110)
[2022-07-21 04:00] VITALS: BP 135/67
[2022-07-21] MEDS: INSULIN LISPRO 100 UNITS/ML SQ PRN ×4 (05:40→21:55)
[2022-07-21] MEDS: HEPARIN SODIUM,PORCINE 5,000 UNITS/ML VIAL SQ SCH ×3 (08:00→16:00)
[2022-07-21] MEDS: ROSUVASTATIN CALCIUM 20 MG TABLET PO SCH (11:37)
[2022-07-21] MEDS: MEMANTINE HCL 10 MG TABLET PO SCH ×2 (11:37→21:57)
[2022-07-21] MEDS: LABETALOL HCL 100 MG TABLET PO SCH ×2 (11:37→21:57)
[2022-07-21] MEDS: MULTIVITAMINS, THERAPEUTIC TABLET PO SCH (11:37)
[2022-07-21 12:00] VITALS: BP 128/67
[2022-07-21 16:00] VITALS: BP 136/75
[2022-07-21 17:06] LABS: GLUCOMETER DEV NAME(LOC) 5S.1B; GLUCOSE,POINT OF CARE 199 MG/DL (70-110)
[2022-07-21 17:06] LABS: GLUCOMETER DEV NAME(LOC) 5S.1B; GLUCOSE,POINT OF CARE 201 MG/DL (70-110)
[2022-07-21 20:16] LABS: GLUCOMETER DEV NAME(LOC) 5N.3; GLUCOSE,POINT OF CARE 344 MG/DL (70-110)
[2022-07-21] MEDS: INSULIN GLARGINE,HUM.REC.ANLOG 100 UNITS/ML SQ SCH (21:54)
[2022-07-21] MEDS: ACETAMINOPHEN 325 MG TABLET PO PRN (21:56)
[2022-07-21 22:00] VITALS: BP 127/63
[2022-07-22 00:13] VITALS: BP 102/55
[2022-07-22 05:41] LABS: GLUCOMETER DEV NAME(LOC) 5S.2B; GLUCOSE,POINT OF CARE 207 MG/DL (70-110)
[2022-07-22 05:46] LABS: BASOPHILS % (AUTO) 0.2 % (0.0-2.0); EOSINOPHILS % (AUTO) 0.5 % (1.0-6.0); HEMATOCRIT 30.6 % (41-53); HEMOGLOBIN 9.8 g/dL (13.5-17.5); LYMPHOCYTES # (AUTO) 2.1 K/uL (1.0-4.8); LYMPHOCYTES % (AUTO) 6.9 % (22.0-44.0); MEAN CORPUSCULAR HEMOGLOBIN 27.6 pg (26.0-34.0); MEAN CORPUSCULAR VOLUME 86 fL (80-100); MONOCYTES # (AUTO) 1.6 K/uL (0.1-1.0); MONOCYTES % (AUTO) 5.3 % (2.0-9.0); NEUTROPHILS # (AUTO) 26.7 K/uL (1.8-7.7); PLATELET COUNT (AUTO) 266 K/uL (150-450); RED BLOOD CELL COUNT(AUTO) 3.55 MIL/uL (4.50-5.90); RED CELL DISTRIBUTION WIDTH 16.4 % (11.5-14.5)
[2022-07-22 05:50] LABS: ANION GAP 7 mmol/L (8-16); CALCIUM, TOTAL 9.2 mg/dL (8.8-10.5); CARBON DIOXIDE 26 mmol/L (22-29); CHLORIDE 101 mmol/L (98-107); CREATININE 1.06 mg/dL (0.60-1.30); GLOMERULAR FILTR. RATE CALC > 60 mL/min (>60); GLUCOSE,RANDOM 206 mg/dL (70-110); POTASSIUM 4.9 mmol/L (3.5-5.1); SODIUM SERUM 134 mmol/L (136-145); UREA NITROGEN, BLOOD 24 mg/dL (7-18)
[2022-07-22 05:52] LABS: NEUTROPHILS % (AUTO) 87.1 % (40.0-70.0)
[2022-07-22 05:56] LABS: GLUCOMETER DEV NAME(LOC) 5S.1B; GLUCOSE,POINT OF CARE 248 MG/DL (70-110)
[2022-07-22] MEDS: INSULIN LISPRO 100 UNITS/ML SQ PRN ×4 (06:22→21:44)
[2022-07-22 06:27] VITALS: BP 129/62
[2022-07-22] MEDS: HEPARIN SODIUM,PORCINE 5,000 UNITS/ML VIAL SQ SCH ×3 (08:00→15:54)
[2022-07-22 08:08] VITALS: BP 119/63
[2022-07-22] MEDS: MULTIVITAMINS, THERAPEUTIC TABLET PO SCH (08:32)
[2022-07-22] MEDS: MEMANTINE HCL 10 MG TABLET PO SCH ×2 (08:32→21:46)
[2022-07-22] MEDS: LABETALOL HCL 100 MG TABLET PO SCH ×2 (08:32→21:46)
[2022-07-22 11:19] VITALS: BP 109/85
[2022-07-22 15:06] LABS: GLUCOMETER DEV NAME(LOC) 5S.2B; GLUCOSE,POINT OF CARE 211 MG/DL (70-110)
[2022-07-22 15:51] LABS: C-REACTIVE PROTEIN QUANT 16.37 mg/dL (0.00-0.30)
[2022-07-22 16:00] VITALS: BP 133/77
[2022-07-22 20:31] LABS: GLUCOMETER DEV NAME(LOC) 5N.1C; GLUCOSE,POINT OF CARE 292 MG/DL (70-110)
[2022-07-22 20:51] VITALS: BP 144/64
[2022-07-22 21:36] LABS: GLUCOMETER DEV NAME(LOC) 5S.1B; GLUCOSE,POINT OF CARE 305 MG/DL (70-110)
[2022-07-22] MEDS: INSULIN GLARGINE,HUM.REC.ANLOG 100 UNITS/ML SQ SCH (21:43)
[2022-07-22] MEDS: ROSUVASTATIN CALCIUM 20 MG TABLET PO SCH (21:46)
[2022-07-22] MEDS: ACETAMINOPHEN 325 MG TABLET PO PRN (21:46)
[2022-07-23] MEDS: HEPARIN SODIUM,PORCINE 5,000 UNITS/ML VIAL SQ SCH ×4 (00:16→23:49)
[2022-07-23 00:34] VITALS: BP 124/65
[2022-07-23 06:30] VITALS: BP 98/49
[2022-07-23] MEDS: INSULIN LISPRO 100 UNITS/ML SQ PRN ×4 (06:40→21:57)
[2022-07-23 06:51] LABS: GLUCOMETER DEV NAME(LOC) 5S.2B; GLUCOSE,POINT OF CARE 295 MG/DL (70-110)
[2022-07-23 08:00] VITALS: BP 126/67
[2022-07-23 09:07] LABS: BASOPHILS % (AUTO) 0.4 % (0.0-2.0); EOSINOPHILS % (AUTO) 0.5 % (1.0-6.0); HEMATOCRIT 32.2 % (41-53); HEMOGLOBIN 10.3 g/dL (13.5-17.5); LYMPHOCYTES # (AUTO) 1.6 K/uL (1.0-4.8); LYMPHOCYTES % (AUTO) 5.3 % (22.0-44.0); MEAN CORPUSCULAR HEMOGLOBIN 27.6 pg (26.0-34.0); MEAN CORPUSCULAR HGB CONC 31.9 G/dL (31.0-37.0); MEAN CORPUSCULAR VOLUME 86 fL (80-100); MONOCYTES # (AUTO) 1.7 K/uL (0.1-1.0); MONOCYTES % (AUTO) 5.7 % (2.0-9.0); NEUTROPHILS # (AUTO) 26.4 K/uL (1.8-7.7); PLATELET COUNT (AUTO) 256 K/uL (150-450); RED BLOOD CELL COUNT(AUTO) 3.73 MIL/uL (4.50-5.90); RED CELL DISTRIBUTION WIDTH 16.1 % (11.5-14.5)
[2022-07-23 09:11] LABS: NEUTROPHILS % (AUTO) 88.1 % (40.0-70.0)
[2022-07-23 09:17] LABS: ANION GAP 8 mmol/L (8-16); CALCIUM, TOTAL 9.1 mg/dL (8.8-10.5); CARBON DIOXIDE 26 mmol/L (22-29); CHLORIDE 100 mmol/L (98-107); CREATININE 1.11 mg/dL (0.60-1.30); GLUCOSE,RANDOM 259 mg/dL (70-110); POTASSIUM 4.3 mmol/L (3.5-5.1); SODIUM SERUM 134 mmol/L (136-145); UREA NITROGEN, BLOOD 28 mg/dL (7-18)
[2022-07-23 09:18] LABS: GLOMERULAR FILTR. RATE CALC > 60 mL/min (>60)
[2022-07-23] MEDS: MULTIVITAMINS, THERAPEUTIC TABLET PO SCH (10:49)
[2022-07-23] MEDS: MEMANTINE HCL 10 MG TABLET PO SCH ×2 (10:49→21:51)
[2022-07-23] MEDS: LABETALOL HCL 100 MG TABLET PO SCH ×2 (10:49→21:51)
[2022-07-23 12:44] VITALS: BP 118/55
[2022-07-23 16:20] VITALS: BP 121/62
[2022-07-23] MEDS: RIFAMPIN 150 MG CAPSULE PO SCH (17:18)
[2022-07-23] MEDS: ISONIAZID 100 MG TABLET PO SCH (17:18)
[2022-07-23] MEDS: ETHAMBUTOL HCL 400 MG TABLET PO SCH (17:19)
[2022-07-23 18:51] LABS: GLUCOMETER DEV NAME(LOC) 5S.1B; GLUCOSE,POINT OF CARE 318 MG/DL (70-110)
[2022-07-23 20:25] VITALS: BP 117/59
[2022-07-23] MEDS: ROSUVASTATIN CALCIUM 20 MG TABLET PO SCH (21:50)
[2022-07-23] MEDS: INSULIN GLARGINE,HUM.REC.ANLOG 100 UNITS/ML SQ SCH (21:57)
[2022-07-23 22:51] LABS: GLUCOMETER DEV NAME(LOC) 5N.1C; GLUCOSE,POINT OF CARE 300 MG/DL (70-110)
[2022-07-24] VITALS (7 sets, daily range): BP systolic 107–143; BP diastolic 55–73
[2022-07-24] MEDS: INSULIN LISPRO 100 UNITS/ML SQ PRN ×3 (06:01→21:18)
[2022-07-24] MEDS: ISONIAZID 100 MG TABLET PO SCH (08:10)
[2022-07-24] MEDS: HEPARIN SODIUM,PORCINE 5,000 UNITS/ML VIAL SQ SCH ×2 (08:11→16:00)
[2022-07-24] MEDS: ETHAMBUTOL HCL 400 MG TABLET PO SCH (08:11)
[2022-07-24] MEDS: MEMANTINE HCL 10 MG TABLET PO SCH ×2 (08:11→21:16)
[2022-07-24] MEDS: LABETALOL HCL 100 MG TABLET PO SCH ×2 (08:11→21:16)
[2022-07-24] MEDS: RIFAMPIN 150 MG CAPSULE PO SCH (08:11)
[2022-07-24] MEDS: MULTIVITAMINS, THERAPEUTIC TABLET PO SCH (08:11)
[2022-07-24 10:41] LABS: GLUCOMETER DEV NAME(LOC) 5S.2B; GLUCOSE,POINT OF CARE 251 MG/DL (70-110)
[2022-07-24 18:51] LABS: GLUCOMETER DEV NAME(LOC) 5S.1B; GLUCOSE,POINT OF CARE 235 MG/DL (70-110)
[2022-07-24 18:51] LABS: GLUCOMETER DEV NAME(LOC) 5S.1B; GLUCOSE,POINT OF CARE 197 MG/DL (70-110)
[2022-07-24 21:12] LABS: GLUCOMETER DEV NAME(LOC) 5N.3; GLUCOSE,POINT OF CARE 267 MG/DL (70-110)
[2022-07-24 21:12] LABS: GLUCOMETER DEV NAME(LOC) 5N.3; GLUCOSE,POINT OF CARE 296 MG/DL (70-110)
[2022-07-24] MEDS: ROSUVASTATIN CALCIUM 20 MG TABLET PO SCH (21:16)
[2022-07-24] MEDS: INSULIN GLARGINE,HUM.REC.ANLOG 100 UNITS/ML SQ SCH (21:17)
[2022-07-25] MEDS: HEPARIN SODIUM,PORCINE 5,000 UNITS/ML VIAL SQ SCH ×3 (00:13→15:06)
[2022-07-25 00:18] VITALS: BP 146/71
[2022-07-25 05:38] VITALS: BP 136/72
[2022-07-25] MEDS: INSULIN LISPRO 100 UNITS/ML SQ PRN ×4 (06:07→21:06)
[2022-07-25 07:55] VITALS: BP 131/61
[2022-07-25] MEDS: ETHAMBUTOL HCL 400 MG TABLET PO SCH (08:22)
[2022-07-25] MEDS: RIFAMPIN 150 MG CAPSULE PO SCH (08:22)
[2022-07-25] MEDS: ISONIAZID 100 MG TABLET PO SCH (08:22)
[2022-07-25] MEDS: MEMANTINE HCL 10 MG TABLET PO SCH ×2 (08:22→21:02)
[2022-07-25] MEDS: LABETALOL HCL 100 MG TABLET PO SCH ×2 (08:22→21:02)
[2022-07-25] MEDS: MULTIVITAMINS, THERAPEUTIC TABLET PO SCH (08:23)
[2022-07-25] MEDS: PYRIDOXINE HCL 50 MG TABLET PO SCH (08:23)
[2022-07-25 13:00] VITALS: BP 132/70
[2022-07-25 13:51] LABS: GLUCOMETER DEV NAME(LOC) 5N.3; GLUCOSE,POINT OF CARE 278 MG/DL (70-110)
[2022-07-25 13:51] LABS: GLUCOMETER DEV NAME(LOC) 5S.2B; GLUCOSE,POINT OF CARE 263 MG/DL (70-110)
[2022-07-25 16:40] VITALS: BP 128/65
[2022-07-25 20:20] VITALS: BP 136/62
[2022-07-25 20:41] LABS: GLUCOMETER DEV NAME(LOC) 5S.1B; GLUCOSE,POINT OF CARE 174 MG/DL (70-110)
[2022-07-25] MEDS: ROSUVASTATIN CALCIUM 20 MG TABLET PO SCH (21:02)
[2022-07-25] MEDS: INSULIN GLARGINE,HUM.REC.ANLOG 100 UNITS/ML SQ SCH (21:06)
[2022-07-26 00:20] VITALS: BP 136/72
[2022-07-26] MEDS: HEPARIN SODIUM,PORCINE 5,000 UNITS/ML VIAL SQ SCH ×3 (00:39→16:00)
[2022-07-26 04:25] VITALS: BP 122/70
[2022-07-26] MEDS: ACETAMINOPHEN 325 MG TABLET PO PRN (06:14)
[2022-07-26 07:06] LABS: GLUCOMETER DEV NAME(LOC) 5N.3; GLUCOSE,POINT OF CARE 124 MG/DL (70-110)
[2022-07-26 07:06] LABS: GLUCOMETER DEV NAME(LOC) 5N.3; GLUCOSE,POINT OF CARE 153 MG/DL (70-110)
[2022-07-26 07:30] VITALS: BP 128/70
[2022-07-26] MEDS: PYRIDOXINE HCL 50 MG TABLET PO SCH (09:01)
[2022-07-26] MEDS: MEMANTINE HCL 10 MG TABLET PO SCH ×2 (09:01→20:26)
[2022-07-26] MEDS: MULTIVITAMINS, THERAPEUTIC TABLET PO SCH (09:02)
[2022-07-26] MEDS: RIFAMPIN 150 MG CAPSULE PO SCH (09:04)
[2022-07-26] MEDS: ISONIAZID 100 MG TABLET PO SCH (09:04)
[2022-07-26] MEDS: ETHAMBUTOL HCL 400 MG TABLET PO SCH (09:04)
[2022-07-26] MEDS: LABETALOL HCL 100 MG TABLET PO SCH ×2 (09:05→20:26)
[2022-07-26 10:59] VITALS: BP 114/68
[2022-07-26 13:56] LABS: GLUCOMETER DEV NAME(LOC) 6N.1; GLUCOSE,POINT OF CARE 130 MG/DL (70-110)
[2022-07-26 20:24] VITALS: BP 119/71
[2022-07-26] MEDS: ROSUVASTATIN CALCIUM 20 MG TABLET PO SCH (20:26)
[2022-07-26] MEDS: INSULIN LISPRO 100 UNITS/ML SQ PRN (20:32)
[2022-07-26] MEDS: INSULIN GLARGINE,HUM.REC.ANLOG 100 UNITS/ML SQ SCH (20:41)
[2022-07-26 21:31] LABS: GLUCOMETER DEV NAME(LOC) 6N.2B; GLUCOSE,POINT OF CARE 106 MG/DL (70-110)
[2022-07-26 21:32] LABS: GLUCOMETER DEV NAME(LOC) 6N.2B; GLUCOSE,POINT OF CARE 200 MG/DL (70-110)
[2022-07-27 04:14] VITALS: BP 123/60
[2022-07-27] MEDS: INSULIN LISPRO 100 UNITS/ML SQ PRN ×2 (06:03→12:29)
[2022-07-27 06:14] LABS: HEMATOCRIT 36.9 % (41-53); HEMOGLOBIN 11.6 g/dL (13.5-17.5); MEAN CORPUSCULAR HEMOGLOBIN 27.2 pg (26.0-34.0); MEAN CORPUSCULAR HGB CONC 31.4 G/dL (31.0-37.0); MEAN CORPUSCULAR VOLUME 87 fL (80-100); PLATELET COUNT (AUTO) 329 K/uL (150-450); RED BLOOD CELL COUNT(AUTO) 4.26 MIL/uL (4.50-5.90); RED CELL DISTRIBUTION WIDTH 16.8 % (11.5-14.5)
[2022-07-27 06:30] LABS: ALBUMIN 1.5 g/dL (3.4-5.0); BILIRUBIN,TOTAL 1.7 mg/dL (0.1-1.0); CALCIUM, TOTAL 9.9 mg/dL (8.8-10.5); CREATININE 1.29 mg/dL (0.60-1.30); POTASSIUM 4.4 mmol/L (3.5-5.1); TOTAL PROTEIN, SERUM 7.6 g/dL (6.4-8.2)
[2022-07-27 07:26] LABS: BAND NEUTROPHILS % (MANUAL) 7 % (0-5); LYMPHOCYTES % (MANUAL) 5 % (22-44); MONOCYTES % (MANUAL) 3 % (2-9); SEGMENTED NEUTROPHILS % 85 % (40-70)
[2022-07-27 08:13] VITALS: BP 129/89
[2022-07-27] MEDS: RIFAMPIN 150 MG CAPSULE PO SCH (09:40)
[2022-07-27] MEDS: MEMANTINE HCL 10 MG TABLET PO SCH ×2 (09:40→20:22)
[2022-07-27] MEDS: LABETALOL HCL 100 MG TABLET PO SCH ×2 (09:40→20:22)
[2022-07-27] MEDS: ETHAMBUTOL HCL 400 MG TABLET PO SCH (09:40)
[2022-07-27] MEDS: ISONIAZID 100 MG TABLET PO SCH (09:41)
[2022-07-27] MEDS: MULTIVITAMINS, THERAPEUTIC TABLET PO SCH (09:41)
[2022-07-27] MEDS: PYRIDOXINE HCL 50 MG TABLET PO SCH (09:41)
[2022-07-27] MEDS: HEPARIN SODIUM,PORCINE 5,000 UNITS/ML VIAL SQ SCH ×3 (09:41→16:00)
[2022-07-27 15:55] VITALS: BP 130/59
[2022-07-27] MEDS: ROSUVASTATIN CALCIUM 20 MG TABLET PO SCH (20:22)
[2022-07-27 20:23] VITALS: BP 142/80
[2022-07-27] MEDS: INSULIN GLARGINE,HUM.REC.ANLOG 100 UNITS/ML SQ SCH (20:40)
[2022-07-28 00:11] LABS: GLUCOMETER DEV NAME(LOC) 6N.2B; GLUCOSE,POINT OF CARE 173 MG/DL (70-110)
[2022-07-28 00:12] LABS: GLUCOMETER DEV NAME(LOC) 6N.1; GLUCOSE,POINT OF CARE 216 MG/DL (70-110)
[2022-07-28 00:12] LABS: GLUCOMETER DEV NAME(LOC) 6N.2B; GLUCOSE,POINT OF CARE 205 MG/DL (70-110)
[2022-07-28] MEDS: HEPARIN SODIUM,PORCINE 5,000 UNITS/ML VIAL SQ SCH ×4 (00:48→23:16)
[2022-07-28 04:41] VITALS: BP 116/76
[2022-07-28] MEDS: INSULIN LISPRO 100 UNITS/ML SQ PRN ×3 (06:02→17:12)
[2022-07-28 06:29] LABS: ALBUMIN 1.5 g/dL (3.4-5.0); BILIRUBIN,TOTAL 1.2 mg/dL (0.1-1.0); CALCIUM, TOTAL 9.7 mg/dL (8.8-10.5); CREATININE 1.35 mg/dL (0.60-1.30); POTASSIUM 4.2 mmol/L (3.5-5.1); TOTAL PROTEIN, SERUM 7.3 g/dL (6.4-8.2)
[2022-07-28 07:16] LABS: GLUCOMETER DEV NAME(LOC) 6N.2B; GLUCOSE,POINT OF CARE 221 MG/DL (70-110)
[2022-07-28 08:23] VITALS: BP 118/82
[2022-07-28] MEDS: LABETALOL HCL 100 MG TABLET PO SCH ×2 (09:05→22:22)
[2022-07-28] MEDS: MULTIVITAMINS, THERAPEUTIC TABLET PO SCH (09:05)
[2022-07-28] MEDS: MEMANTINE HCL 10 MG TABLET PO SCH ×2 (09:05→22:22)
[2022-07-28] MEDS: PYRIDOXINE HCL 50 MG TABLET PO SCH (09:05)
[2022-07-28] MEDS: ETHAMBUTOL HCL 400 MG TABLET PO SCH (09:06)
[2022-07-28] MEDS: RIFAMPIN 150 MG CAPSULE PO SCH (09:07)
[2022-07-28] MEDS: ISONIAZID 100 MG TABLET PO SCH (09:07)
[2022-07-28 13:06] LABS: GLUCOMETER DEV NAME(LOC) 6N.1; GLUCOSE,POINT OF CARE 217 MG/DL (70-110)
[2022-07-28 15:35] VITALS: BP 131/69
[2022-07-28 20:36] VITALS: BP 120/90
[2022-07-28] MEDS: ROSUVASTATIN CALCIUM 20 MG TABLET PO SCH (22:21)
[2022-07-28] MEDS: INSULIN GLARGINE,HUM.REC.ANLOG 100 UNITS/ML SQ SCH (22:27)
[2022-07-28 23:06] LABS: GLUCOMETER DEV NAME(LOC) 6N.2B; GLUCOSE,POINT OF CARE 190 MG/DL (70-110)
[2022-07-29 00:11] LABS: GLUCOMETER DEV NAME(LOC) 6N.1; GLUCOSE,POINT OF CARE 308 MG/DL (70-110)
[2022-07-29 04:57] VITALS: BP 120/70
[2022-07-29] MEDS: INSULIN LISPRO 100 UNITS/ML SQ PRN ×4 (05:44→20:41)
[2022-07-29 07:01] LABS: GLUCOMETER DEV NAME(LOC) 6N.1; GLUCOSE,POINT OF CARE 199 MG/DL (70-110)
[2022-07-29 07:15] LABS: ALBUMIN 1.4 g/dL (3.4-5.0); BILIRUBIN,TOTAL 1.1 mg/dL (0.1-1.0); CALCIUM, TOTAL 9.4 mg/dL (8.8-10.5); CREATININE 1.24 mg/dL (0.60-1.30); POTASSIUM 3.9 mmol/L (3.5-5.1)
[2022-07-29 08:44] VITALS: BP 151/75
[2022-07-29] MEDS: ISONIAZID 100 MG TABLET PO SCH (08:58)
[2022-07-29] MEDS: HEPARIN SODIUM,PORCINE 5,000 UNITS/ML VIAL SQ SCH ×3 (08:58→23:16)
[2022-07-29] MEDS: MULTIVITAMINS, THERAPEUTIC TABLET PO SCH (08:58)
[2022-07-29] MEDS: ETHAMBUTOL HCL 400 MG TABLET PO SCH (08:58)
[2022-07-29] MEDS: LABETALOL HCL 100 MG TABLET PO SCH ×2 (08:59→20:35)
[2022-07-29] MEDS: PYRIDOXINE HCL 50 MG TABLET PO SCH (09:00)
[2022-07-29] MEDS: RIFAMPIN 150 MG CAPSULE PO SCH (09:00)
[2022-07-29] MEDS: MEMANTINE HCL 10 MG TABLET PO SCH ×2 (09:00→20:35)
[2022-07-29 12:41] LABS: GLUCOMETER DEV NAME(LOC) 6N.1; GLUCOSE,POINT OF CARE 206 MG/DL (70-110)
[2022-07-29 16:10] VITALS: BP 139/61
[2022-07-29 18:26] LABS: GLUCOMETER DEV NAME(LOC) 6N.2B; GLUCOSE,POINT OF CARE 155 MG/DL (70-110)
[2022-07-29 20:05] VITALS: BP 136/66
[2022-07-29] MEDS: ROSUVASTATIN CALCIUM 20 MG TABLET PO SCH (20:34)
[2022-07-29] MEDS: INSULIN GLARGINE,HUM.REC.ANLOG 100 UNITS/ML SQ SCH (20:41)
[2022-07-29 22:46] LABS: GLUCOMETER DEV NAME(LOC) 6N.2B; GLUCOSE,POINT OF CARE 226 MG/DL (70-110)
[2022-07-30 04:00] VITALS: BP 121/56
[2022-07-30] MEDS: INSULIN LISPRO 100 UNITS/ML SQ PRN ×3 (05:40→20:32)
[2022-07-30 07:11] LABS: GLUCOMETER DEV NAME(LOC) 6N.2B; GLUCOSE,POINT OF CARE 168 MG/DL (70-110)
[2022-07-30 08:00] VITALS: BP 115/51
[2022-07-30] MEDS: RIFAMPIN 150 MG CAPSULE PO SCH (08:14)
[2022-07-30] MEDS: PYRIDOXINE HCL 50 MG TABLET PO SCH (08:15)
[2022-07-30] MEDS: ISONIAZID 100 MG TABLET PO SCH (08:15)
[2022-07-30] MEDS: ETHAMBUTOL HCL 400 MG TABLET PO SCH (08:16)
[2022-07-30] MEDS: MEMANTINE HCL 10 MG TABLET PO SCH ×2 (08:16→20:29)
[2022-07-30] MEDS: MULTIVITAMINS, THERAPEUTIC TABLET PO SCH (08:16)
[2022-07-30] MEDS: LABETALOL HCL 100 MG TABLET PO SCH ×2 (08:16→20:29)
[2022-07-30] MEDS: HEPARIN SODIUM,PORCINE 5,000 UNITS/ML VIAL SQ SCH ×3 (08:16→23:28)
[2022-07-30 10:34] LABS: ALBUMIN 1.3 g/dL (3.4-5.0); BILIRUBIN,TOTAL 1.1 mg/dL (0.1-1.0); CALCIUM, TOTAL 9.4 mg/dL (8.8-10.5); CREATININE 1.3 mg/dL (0.60-1.30); POTASSIUM 3.8 mmol/L (3.5-5.1); TOTAL PROTEIN, SERUM 6.6 g/dL (6.4-8.2)
[2022-07-30 12:57] LABS: GLUCOMETER DEV NAME(LOC) 6N.2B; GLUCOSE,POINT OF CARE 169 MG/DL (70-110)
[2022-07-30 16:00] VITALS: BP 129/58
[2022-07-30 19:46] LABS: GLUCOMETER DEV NAME(LOC) 6N.2B; GLUCOSE,POINT OF CARE 106 MG/DL (70-110)
[2022-07-30 20:10] VITALS: BP 137/56
[2022-07-30 20:10] LABS: GLUCOMETER DEV NAME(LOC) 6N.2B; GLUCOSE,POINT OF CARE 197 MG/DL (70-110)
[2022-07-30] MEDS: ROSUVASTATIN CALCIUM 20 MG TABLET PO SCH (20:29)
[2022-07-30] MEDS: INSULIN GLARGINE,HUM.REC.ANLOG 100 UNITS/ML SQ SCH (20:31)
[2022-07-31 03:41] VITALS: BP 131/68
[2022-07-31 07:24] VITALS: BP 124/63
[2022-07-31 08:11] LABS: GLUCOMETER DEV NAME(LOC) 6N.2B; GLUCOSE,POINT OF CARE 148 MG/DL (70-110)
[2022-07-31] MEDS: PYRIDOXINE HCL 50 MG TABLET PO SCH (08:36)
[2022-07-31] MEDS: MULTIVITAMINS, THERAPEUTIC TABLET PO SCH (08:36)
[2022-07-31] MEDS: RIFAMPIN 150 MG CAPSULE PO SCH (08:36)
[2022-07-31] MEDS: HEPARIN SODIUM,PORCINE 5,000 UNITS/ML VIAL SQ SCH ×2 (08:36→15:42)
[2022-07-31] MEDS: LABETALOL HCL 100 MG TABLET PO SCH ×2 (08:37→21:39)
[2022-07-31] MEDS: ISONIAZID 100 MG TABLET PO SCH (08:37)
[2022-07-31] MEDS: ETHAMBUTOL HCL 400 MG TABLET PO SCH (08:37)
[2022-07-31] MEDS: MEMANTINE HCL 10 MG TABLET PO SCH ×2 (08:37→21:40)
[2022-07-31 15:20] VITALS: BP 137/65
[2022-07-31] MEDS: INSULIN LISPRO 100 UNITS/ML SQ PRN ×2 (17:54→21:53)
[2022-07-31 19:21] LABS: GLUCOMETER DEV NAME(LOC) 6N.1; GLUCOSE,POINT OF CARE 355 MG/DL (70-110)
[2022-07-31 20:15] VITALS: BP 107/60
[2022-07-31] MEDS: ROSUVASTATIN CALCIUM 20 MG TABLET PO SCH (21:39)
[2022-07-31] MEDS: INSULIN GLARGINE,HUM.REC.ANLOG 100 UNITS/ML SQ SCH (21:52)
[2022-07-31 22:31] LABS: GLUCOMETER DEV NAME(LOC) 6N.2B; GLUCOSE,POINT OF CARE 302 MG/DL (70-110)
[2022-08-01 05:00] VITALS: BP 104/58
[2022-08-01] MEDS: INSULIN LISPRO 100 UNITS/ML SQ PRN ×3 (06:11→17:38)
[2022-08-01 06:41] LABS: GLUCOMETER DEV NAME(LOC) 6N.2B; GLUCOSE,POINT OF CARE 245 MG/DL (70-110)
[2022-08-01 07:37] VITALS: BP 114/64
[2022-08-01] MEDS: ISONIAZID 100 MG TABLET PO SCH (08:16)
[2022-08-01] MEDS: RIFAMPIN 150 MG CAPSULE PO SCH (08:17)
[2022-08-01] MEDS: MEMANTINE HCL 10 MG TABLET PO SCH ×2 (08:18→20:42)
[2022-08-01] MEDS: LABETALOL HCL 100 MG TABLET PO SCH ×2 (08:18→20:42)
[2022-08-01] MEDS: ETHAMBUTOL HCL 400 MG TABLET PO SCH (08:18)
[2022-08-01] MEDS: PYRIDOXINE HCL 50 MG TABLET PO SCH (08:19)
[2022-08-01] MEDS: MULTIVITAMINS, THERAPEUTIC TABLET PO SCH (08:19)
[2022-08-01] MEDS: HEPARIN SODIUM,PORCINE 5,000 UNITS/ML VIAL SQ SCH ×3 (08:40→15:31)
[2022-08-01 13:46] LABS: GLUCOMETER DEV NAME(LOC) 6N.2B; GLUCOSE,POINT OF CARE 312 MG/DL (70-110)
[2022-08-01 15:35] VITALS: BP 116/54
[2022-08-01 20:03] VITALS: BP 131/61
[2022-08-01] MEDS: ROSUVASTATIN CALCIUM 20 MG TABLET PO SCH (20:42)
[2022-08-01] MEDS: INSULIN GLARGINE,HUM.REC.ANLOG 100 UNITS/ML SQ SCH (21:34)
[2022-08-02] MEDS: HEPARIN SODIUM,PORCINE 5,000 UNITS/ML VIAL SQ SCH ×4 (00:34→23:51)
[2022-08-02 02:41] LABS: GLUCOMETER DEV NAME(LOC) 6N.1; GLUCOSE,POINT OF CARE 206 MG/DL (70-110)
[2022-08-02 02:41] LABS: GLUCOMETER DEV NAME(LOC) 6N.2B; GLUCOSE,POINT OF CARE 162 MG/DL (70-110)
[2022-08-02 04:57] VITALS: BP 118/74
[2022-08-02] MEDS: INSULIN LISPRO 100 UNITS/ML SQ PRN (05:51)
[2022-08-02 07:06] LABS: GLUCOMETER DEV NAME(LOC) 6N.1; GLUCOSE,POINT OF CARE 150 MG/DL (70-110)
[2022-08-02 07:17] VITALS: BP 113/64
[2022-08-02] MEDS: ISONIAZID 100 MG TABLET PO SCH (08:36)
[2022-08-02] MEDS: RIFAMPIN 150 MG CAPSULE PO SCH (08:38)
[2022-08-02] MEDS: PYRIDOXINE HCL 50 MG TABLET PO SCH (08:39)
[2022-08-02] MEDS: MEMANTINE HCL 10 MG TABLET PO SCH ×2 (08:39→20:30)
[2022-08-02] MEDS: MULTIVITAMINS, THERAPEUTIC TABLET PO SCH (08:39)
[2022-08-02] MEDS: LABETALOL HCL 100 MG TABLET PO SCH ×2 (08:39→20:30)
[2022-08-02] MEDS: ETHAMBUTOL HCL 400 MG TABLET PO SCH (08:40)
[2022-08-02 08:55] LABS: APPEARANCE,URINE HAZY (CLEAR); BILIRUBIN,URINE NEGATIVE (NEGATIVE); GLUCOSE, URINE (UA) NEGATIVE (NEGATIVE); KETONES,URINE NEGATIVE (NEGATIVE); LEUKOCYTE ESTERASE ,URINE SMALL (NEGATIVE); NITRATE,URINE NEGATIVE (NEGATIVE); OCCULT BLOOD,URINE NEGATIVE (NEGATIVE); PH,URINE 6.5 (5.0-8.0); PROTEIN,URINE 100-200,SEE CONFIRM mg/dL (NEGATIVE); SPECIFIC GRAVITIY, URINE 1.022 (1.003-1.030)
[2022-08-02 09:15] LABS: BACTERIA,URINE Few /HPF (None Seen); RBC,URINE 0-2 /HPF (0-2); SULFOSALICYLIC ACID,URINE 2+ (Negative)
[2022-08-02 12:27] LABS: GLUCOMETER DEV NAME(LOC) 6N.2B; GLUCOSE,POINT OF CARE 128 MG/DL (70-110)
[2022-08-02 15:32] VITALS: BP 128/75
[2022-08-02 18:56] LABS: GLUCOMETER DEV NAME(LOC) 6N.1; GLUCOSE,POINT OF CARE 135 MG/DL (70-110)
[2022-08-02 19:15] VITALS: BP 124/76
[2022-08-02] MEDS: ROSUVASTATIN CALCIUM 20 MG TABLET PO SCH (20:30)
[2022-08-02] MEDS: INSULIN GLARGINE,HUM.REC.ANLOG 100 UNITS/ML SQ SCH (20:44)
[2022-08-02 21:37] LABS: GLUCOMETER DEV NAME(LOC) 6N.2B; GLUCOSE,POINT OF CARE 136 MG/DL (70-110)
== END 2022-08-03 04:00 | DRG 871 ==
LOC: EMS 21:15 → 5N 07-07 01:50 → 5S 07-09 04:57 → 6S 07-26 10:45 → 6N 07-30 16:21
PROVIDERS: ADMIT Internal Medicine; ATTEND Internal Medicine
DX: A41.9 Sepsis, unspecified organism (principal); E43 Unspecified severe protein-calorie malnutrition; J13 Pneumonia due to Streptococcus pneumoniae; J98.11 Atelectasis; E87.0 Hyperosmolality and hypernatremia; G93.40 Encephalopathy, unspecified; N17.9 Acute kidney failure, unspecified; C78.00 Secondary malignant neoplasm of unspecified lung; Z68.1 Body mass index [BMI] 19.9 or less, adult; F02.80 Dementia in other diseases classified elsewhere, unspecified severity, without behavioral disturbance, psychotic disturbance, mood disturbance, and anxiety; G30.9 Alzheimer's disease, unspecified; Z53.20 Procedure and treatment not carried out because of patient's decision for unspecified reasons; Z66 Do not resuscitate; Z20.822 Contact with and (suspected) exposure to COVID-19; E11.65 Type 2 diabetes mellitus with hyperglycemia; E78.00 Pure hypercholesterolemia, unspecified; I10 Essential (primary) hypertension; E78.5 Hyperlipidemia, unspecified; K21.9 Gastro-esophageal reflux disease without esophagitis; Z51.5 Encounter for palliative care; Z79.4 Long term (current) use of insulin; Z79.899 Other long term (current) drug therapy; Z74.01 Bed confinement status
CPT/HCPCS: 71045; 71250; 72192; 74150; 74177; 76770; 80048; 80053; 81001; 81002; 82570; 82728; 82962; 83605; 83735; 84080; 84132; 84134; 84145; 84300; 84439; 84443; 84484; 85025; 85379; 86140; 86480; 86738; 87015; 87040; 87070; 87081; 87086; 87101; 87186; 87205; 87206; 87389; 87449; 87556; 87804; 87899; 92610; 93005; 93970; 94640; 94799; 97162; 99285; J0360; J1644; J1815; J2543; J3480; J7040; J7050; J7060; J7120; Q9967; 36415-L1; 36415-TC; U0003